=== PATIENT | male | born 1980 | race Caucasian/White ===

== ENCOUNTER 2023-07-28 18:05 | Observation (INO) | payer OTHER ==
[2023-07-28] MEDS ORDERED: Morphine 4 MG/ML VIAL ONE ×2 (18:41→22:26)
[2023-07-28] MEDS ORDERED: Ketorolac Tromethamine 30 MG (1 mL) VIAL ONE (18:41)
[2023-07-28] MEDS ORDERED: Ondansetron PF 4 MG/2 ML Vial ONE ×2 (18:53→22:26)
[2023-07-28 23:14] LABS: #Basophils 0.03 10x3/uL (0.0-0.2); #Eosinphils Less than 0.03 10x3/uL (0.0-0.7); %Basophils 0.3 % (0.0-1.0); %Eosinophils 0.2 % (0.0-10.0); %Lymphocytes 14.9 % (21.0-51.0); %Monocytes 7.9 % (0.0-10.0); %Neutrophils 76.4 % (42.0-75.0); Hematocrit 43.3 % (42.0-52.0); Hemoglobin 13.8 g/dL (14.0-18.0); Mean Corpuscular HGB CONC 31.9 g/dL (32.0-36.0); Mean Corpuscular Hemoglobin 29.7 pg (27.0-31.0); Mean Corpuscular Volume 93.1 fL (78.0-98.0); Platelet Count 180 10x3/uL (130-400); Red Blood Cell (RBC) Count 4.65 mill/uL (4.70-6.10)
[2023-07-28 23:21] LABS: Bacteria/HPF None Seen HPF (None Seen); Bilirubin Negative (Negative); Blood, Urine 1+ (Negative); CAUTI Indications for Culture Dysuria,urgency,freq; Clarity Clear (Clear); Glucose, Urine (Dipstick) Normal (Negative); Ketone, Urine Negative (Negative); Leukocyte Negative Leu/uL (Negative); Nitrite Negative (Negative); Protein, Urine (Dipstick) Negative (Neg-Trace); Specific Gravity, Urine 1.022 (1.002-1.036); Squamous Epithelial None Seen HPF (0-3); Urobilinogen Normal mg/dL (Less than 2); pH, Urine 5.5 (5.0-9.0)
[2023-07-28 23:29] LABS: Urine Culture Reflex No No
[2023-07-28 23:34] LABS: ALT (SGPT) 23 U/L (8-55); AST (SGOT) 20 U/L (5-34); Albumin 3.2 g/dL (3.5-5.0); Alkaline Phosphatase 59 U/L (40-110); Anion Gap 15 mmol/L (10-20); BUN (Urea Nitrogen) 12 mg/dL (8.9-20.6); Bilirubin, Total 0.8 mg/dL (0.2-1.2); Calc. Creatinine Clearance 0 mL/min (70-130); Calcium 9.1 mg/dL (7.8-10.44); Carbon Dioxide 20 mmol/L (22-29); Chloride 107 mmol/L (98-107); Estimated GFR 57; Globulin 3.3 g/dL (2.4-3.5); Glucose 116 mg/dL (70-105); Protein, Total 6.5 g/dL (6.0-8.3); Sodium 138 mmol/L (136-145)
[2023-07-29] MEDS ORDERED: Morphine 4 MG/ML VIAL ONE (00:04)
[2023-07-29] MEDS ORDERED: Sodium Chloride 0.9% 100 ML ONE (00:04)
[2023-07-29] MEDS ORDERED: CEFAZOLIN 2 GM VIAL ONE (00:04)
[2023-07-29] MEDS ORDERED: Iopamidol 15 ML ONE (00:32)
[2023-07-29] MEDS ORDERED: PROPOFOL 40 ML ONE (00:48)
[2023-07-29] MEDS ORDERED: Lidocaine 2% PF 5 ML VIAL ONE (00:48)
[2023-07-29] MEDS ORDERED: fentaNYL PF 100 MCG/2 ML SYRINGE ONE (00:50)
[2023-07-29] MEDS ORDERED: Dexamethasone 20 MG/5 ML VIAL ONE (00:51)
[2023-07-29] MEDS ORDERED: Ondansetron PF 4 MG/2 ML Vial ONE ×2 (00:51→01:12)
[2023-07-29] MEDS ORDERED: Promethazine HCl 25 MG/ML VIAL IM PRN (01:33)
[2023-07-29] MEDS ORDERED: Ondansetron HCl/PF 4 MG/2 ML Vial IVP PRN (01:33)
[2023-07-29] MEDS ORDERED: Acetaminophen 650 MG Suppository PR PRN (02:22)
[2023-07-29] MEDS ORDERED: Ondansetron PF 4 MG/2 ML Vial IVP PRN (02:22)
[2023-07-29] MEDS ORDERED: Ondansetron ODT 4 MG TAB PO PRN (02:22)
[2023-07-29 02:41] VITALS: BMI 31.0
[2023-07-29 06:08] LABS: #Basophils Less than 0.03 10x3/uL (0.0-0.2); #Eosinphils Less than 0.03 10x3/uL (0.0-0.7); %Basophils 0.1 % (0.0-1.0); %Lymphocytes 9.2 % (21.0-51.0); %Monocytes 1.9 % (0.0-10.0); %Neutrophils 88.4 % (42.0-75.0); Hematocrit 43.2 % (42.0-52.0); Hemoglobin 14.4 g/dL (14.0-18.0); Mean Corpuscular HGB CONC 33.3 g/dL (32.0-36.0); Mean Corpuscular Hemoglobin 29.8 pg (27.0-31.0); Mean Corpuscular Volume 89.4 fL (78.0-98.0); Mean Platelet Volume 12.4 fL (7.4-10.4); Platelet Count 230 10x3/uL (130-400); RBC Distribution Width 12.2 % (11.5-14.5); Red Blood Cell (RBC) Count 4.83 mill/uL (4.70-6.10)
[2023-07-29 06:33] LABS: Anion Gap 12 mmol/L (10-20); BUN (Urea Nitrogen) 10 mg/dL (8.9-20.6); Calc. Creatinine Clearance 97 mL/min (70-130); Calcium 9.4 mg/dL (7.8-10.44); Carbon Dioxide 25 mmol/L (22-29); Chloride 106 mmol/L (98-107); Estimated GFR 68; Glucose 139 mg/dL (70-105); Potassium 4.6 mmol/L (3.5-5.1); Sodium 138 mmol/L (136-145)
[2023-07-29] MEDS: Morphine 4 MG/ML VIAL SLOW IVP PRN (13:07)
[2023-07-29] MEDS: Sodium Chloride 0.9% 1,000 ML IV SCH (15:35)
[2023-07-29] MEDS: Acetaminophen 325 MG TAB PO PRN (20:44)
[2023-07-30 07:42] LABS: Anion Gap 12 mmol/L (10-20); BUN (Urea Nitrogen) 13 mg/dL (8.9-20.6); Calc. Creatinine Clearance 131 mL/min (70-130); Calcium 9.1 mg/dL (7.8-10.44); Carbon Dioxide 28 mmol/L (22-29); Chloride 103 mmol/L (98-107); Estimated GFR 97; Glucose 97 mg/dL (70-105); Sodium 139 mmol/L (136-145)
[2023-07-30 08:58] VITALS: BP 109/74; TEMP 98.5
== END 2023-07-30 10:50 | disposition home or self-care (01) ==
LOC: ERS 18:05 → T4-A 07-29 01:00 → SDC/OP 07-29 01:00 → T4-A 07-29 02:07
PROVIDERS: ADMIT Student in an Organized Health Care Education/Training Program; ATTEND Family Medicine
PROC: 0T778DZ Dilation of Left Ureter with Intraluminal Device, Via Natural or Artificial Opening Endoscopic (ICD-10-PCS; principal; 2023-07-29)
DX: N20.2 Calculus of kidney with calculus of ureter (principal); N35.911 Unspecified urethral stricture, male, meatal; N17.9 Acute kidney failure, unspecified; Z87.442 Personal history of urinary calculi
CPT/HCPCS: 36415; 74176; 74420; 80048; 80053; 81001; 85025; C1874; J1100; J1885; J2001; J2270; J2405; J2704; J3490; J7050; Q9967

== ENCOUNTER 2023-08-07 08:55 | Outpatient (CLI) | payer OTHER ==
[2023-08-07 11:06] LABS: Anion Gap 14 mmol/L (10-20); BUN (Urea Nitrogen) 19 mg/dL (8.9-20.6); Calc. Creatinine Clearance 0 mL/min (70-130); Calcium 9.5 mg/dL (7.8-10.44); Carbon Dioxide 25 mmol/L (22-29); Chloride 104 mmol/L (98-107); Estimated GFR 79; Glucose 95 mg/dL (70-105); Potassium 4.5 mmol/L (3.5-5.1); Sodium 138 mmol/L (136-145)
== END 2023-08-07 08:56 | disposition home or self-care (01) ==
LOC: LABBT 08:55
PROVIDERS: ATTEND Urology
DX: Z01.812 Encounter for preprocedural laboratory examination (principal); N20.1 Calculus of ureter
CPT/HCPCS: 80048; 87086

== ENCOUNTER 2023-08-18 10:50 | Day surgery (SDC) | payer OTHER ==
[2023-08-07 09:37] VITALS: BMI 30.7
[2023-08-18] MEDS ORDERED: CEFAZOLIN 2 GM VIAL ONE (11:42)
[2023-08-18] MEDS ORDERED: Sodium Chloride 0.9% 100 ML ONE (11:43)
[2023-08-18] MEDS ORDERED: Dexamethasone 4 mg/ml Vial ONE (11:45)
[2023-08-18] MEDS ORDERED: Ondansetron PF 4 MG/2 ML Vial ONE ×2 (11:45→11:47)
[2023-08-18] MEDS ORDERED: Lidocaine 1% PF 5 ML VIAL ONE (11:45)
[2023-08-18] MEDS ORDERED: fentaNYL PF 100 MCG/2 ML SYRINGE ONE (11:46)
[2023-08-18] MEDS ORDERED: Iopamidol 30 ML ONE (11:46)
[2023-08-18] MEDS ORDERED: PROPOFOL 40 ML ONE (11:46)
[2023-08-18] MEDS ORDERED: SUGAMMADEX SODIUM 200 MG/2 ML VIAL ONE (12:06)
[2023-08-18] MEDS ORDERED: Rocuronium Bromide 10 MG/ML (10ML VIAL) ONE (12:06)
[2023-08-18] MEDS ORDERED: Dexmedetomidine 200 MCG/2 ML VIAL ONE (12:06)
[2023-08-18] MEDS ORDERED: Ketorolac Tromethamine 30 MG (1 mL) VIAL ONE (12:06)
[2023-08-18] MEDS ORDERED: PHENYLEPHRINE-NS 100 MCG/ML 10 ML SYRINGE ONE (12:58)
[2023-08-18] MEDS ORDERED: Meperidine HCl/PF 25 MG (1 mL) VIAL ONE (14:08)
== END 2023-08-18 15:43 | disposition home or self-care (01) ==
LOC: SDC 10:50
PROVIDERS: ATTEND Urology
PROC: 0T778DZ Dilation of Left Ureter with Intraluminal Device, Via Natural or Artificial Opening Endoscopic (ICD-10-PCS; principal; 2023-08-18)
PROC: 0TC78ZZ Extirpation of Matter from Left Ureter, Via Natural or Artificial Opening Endoscopic (ICD-10-PCS; principal; 2023-08-18)
DX: N20.1 Calculus of ureter (principal); N35.911 Unspecified urethral stricture, male, meatal; Z87.442 Personal history of urinary calculi
CPT/HCPCS: 74420; 82365; 88300; C1747; C1769; C2617; J1100; J1885; J2175; J2405; J2704; J3490; Q9967